=== PATIENT | male | born 1995 | race Two or more races ===

== ENCOUNTER 2022-05-10 07:05 | Outpatient (CLI) | payer OTHER | END 2022-05-10 07:06 | disposition home or self-care (01) | LOC: LAB 07:05 | PROVIDERS: ATTEND Obstetrics & Gynecology | DX: Z20.818 Contact with and (suspected) exposure to other bacterial communicable diseases (principal); Z20.828 Contact with and (suspected) exposure to other viral communicable diseases ==

== ENCOUNTER 2023-11-03 12:52 | Outpatient (CLI) | payer OTHER | END 2023-11-03 12:58 | disposition home or self-care (01) | LOC: RAD 12:52 | PROVIDERS: ATTEND Internal Medicine | DX: Z01.810 Encounter for preprocedural cardiovascular examination (principal); I10 Essential (primary) hypertension; E03.9 Hypothyroidism, unspecified; E78.9 Disorder of lipoprotein metabolism, unspecified; E55.9 Vitamin D deficiency, unspecified; E11.51 Type 2 diabetes mellitus with diabetic peripheral angiopathy without gangrene; E11.9 Type 2 diabetes mellitus without complications; E66.8 Other obesity; Z12.11 Encounter for screening for malignant neoplasm of colon; N41.8 Other inflammatory diseases of prostate; N41.0 Acute prostatitis ==